=== PATIENT | female | born 1990 ===

== ENCOUNTER → 2017-03-09 | Outpatient (CLI) | payer OTHER ==
--- NOTE | 2017-03-09 13:54 | REP ---
Clinical: Contusion. Technique: AP and lateral views of the right humerus. Findings: No acute fracture dislocation. Skeletal structures, joint spaces, and surrounding soft tissues are normal. Impression: Normal right humerus. No acute fracture or dislocation. Signed by Rigo Abbott MD 03/09/2017 01:46 P
--- NOTE | 2017-03-09 13:55 | REP ---
Clinical: Contusion . Technique: Internal rotation, external rotation, and Y view right shoulder . Findings: No acute fracture or dislocation. The acromioclavicular and glenohumeral joints are intact. No periarticular calcifications or degenerative changes are appreciated. Sub acromial space is normal. Surrounding soft tissues are unremarkable. Impression: Normal right shoulder radiographs. Signed by Rigo Abbott MD 03/09/2017 01:46 P
== END ==
LOC: M WUC 13:00
PROVIDERS: ATTEND Physician Assistant
DX: S40.012A Contusion of left shoulder, initial encounter (principal); W18.30XA Fall on same level, unspecified, initial encounter; Y92.009 Unspecified place in unspecified non-institutional (private) residence as the place of occurrence of the external cause

== ENCOUNTER → 2018-09-10 | Outpatient (REF) | payer OTHER | LOC: M LAB REF 16:42 | PROVIDERS: ATTEND Physician Assistant | DX: J06.9 Acute upper respiratory infection, unspecified (principal) ==

== ENCOUNTER → 2019-04-24 | Outpatient (REF) | payer OTHER ==
[2019-04-27 00:06] LABS: EBV VIRAL CAPSID AG IgM <36.0 U/mL (0.0-35.9)
== END ==
LOC: M LAB REF 16:36
PROVIDERS: ATTEND Nurse Practitioner Family
DX: R53.83 Other fatigue (principal)

== ENCOUNTER → 2019-09-01 | Outpatient (CLI) | payer OTHER | LOC: M OUTALCOH 08:17 | PROVIDERS: ATTEND Psychiatry & Neurology Addiction Medicine | DX: Z03.89 Encounter for observation for other suspected diseases and conditions ruled out (principal) ==

== ENCOUNTER → 2019-09-23 | Outpatient (RCR) | payer OTHER | LOC: M OUTALCOH 09-09 15:56 | PROVIDERS: ATTEND Psychiatry & Neurology Addiction Medicine | DX: F10.10 Alcohol abuse, uncomplicated (principal) ==

== ENCOUNTER 2019-10-21 14:50 | Outpatient (RCR) | payer OTHER | END 2019-10-23 | LOC: M OUTALCOH 14:50 | PROVIDERS: ATTEND Psychiatry & Neurology Addiction Medicine | DX: F10.10 Alcohol abuse, uncomplicated (principal) ==

== ENCOUNTER 2019-11-11 15:17 | Outpatient (RCR) | payer OTHER | END 2019-11-23 | LOC: M OUTALCOH 15:17 | PROVIDERS: ATTEND Psychiatry & Neurology Addiction Medicine | DX: F10.10 Alcohol abuse, uncomplicated (principal) ==

== ENCOUNTER → 2021-10-11 | Outpatient (REF) | payer OTHER | LOC: M LAB REF 17:09 | PROVIDERS: ATTEND Registered Nurse | DX: E78.5 Hyperlipidemia, unspecified (principal) ==

== ENCOUNTER → 2021-10-11 | Outpatient (REF) | payer OTHER ==
[2021-10-13 13:09] LABS: MONO SCRN NEGATIVE (NEGATIVE)
== END ==
LOC: M LAB REF 12:10
PROVIDERS: ATTEND Registered Nurse
DX: R53.83 Other fatigue (principal)

== ENCOUNTER → 2025-05-11 | Outpatient (REF) | payer BC ==
[2025-05-11 19:01] LABS: HCG, SERUM QUALITATIVE POSITIVE (NEGATIVE)
== END ==
LOC: M LAB REF 17:14
PROVIDERS: ATTEND Internal Medicine
DX: Z32.00 Encounter for pregnancy test, result unknown (principal)